=== PATIENT | male | born 1995 | race African-American/Black ===

== ENCOUNTER 2017-03-08 18:15 | Inpatient (IN) | payer SELFPAY ==
[~2017-03-08] VITALS: Ht 170.2 cm; Wt 75.9 kg
[2017-03-08] MEDS ORDERED: ACETAMINOPHEN 325 MG TABLET. PO PRN (22:15)
[2017-03-08] MEDS: fentaNYL PF VIAL 100 MCG/2 ML VIAL IV PRN (22:24)
[2017-03-08] MEDS: IV NORMAL SALINE 1000ML BAG 1,000 ML IV SCH (22:24)
[2017-03-08] MEDS ORDERED: CLINDAMYCIN 900MG PREMIX 50 ML IV ONE (22:30)
[2017-03-08] MEDS ORDERED: ACETAMINOPHEN 325 MG TABLET. PO ONE (22:30)
[2017-03-08 22:33] VITALS: BP 112/60
--- NOTE | 2017-03-08 22:33 | PDOC1 ---
History and Physical Date of Admission Date of Admission DATE: 03/08/17 TIME: 22:26 Identification/Chief Complaint Chief Complaint buttock pain Problems: Source Source: Chart review, Patient History of Present Illness History of Present Illness transferred from [facility], seen in the ER there for buttock pain, noted 2 small and painful cysts, large in the glutteal fold, about 2cm x3 cm eval here for gen surg to eval for I+D, pain 9/10 pain is severe, better with iv fentanyl Mr. 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, and has been sweating more lately Past Medical History Cardiovascular: No pertinent hx Pulmonary: No pertinent hx GI: No pertinent hx Heme/Onc: No pertinent hx Hepatobiliary: No pertinent hx Psych: No pertinent hx Rheumatologic: No pertinent hx Family History Family History: Other (skin problems, cysts and boils) Social History Smoke: <1 pack per day ALCOHOL: rare Drugs: None Current Medications Current Medications Current Medications Sodium Chloride 1,000 ml @ 150 mls/hr Q6H40M IV Last administered on 22:24; Start 03/08/17 at 22:00 Fentanyl Citrate (Fentanyl 2ml Vial) 50 mcg PRN Q1HR PRN IV SEVERE PAIN Last administered on 03/08/17 22:24; Start 03/08/17 at 22:00 Acetaminophen (Tylenol) 650 mg 1X ONCE PO ; Start 03/08/17 at 22:30; Stop 03/08 at 22:31 Acetaminophen (Tylenol) 650 mg PRN Q6HRS PRN PO MILD PAIN; Start 03/08/17 at 22 :15 Clindamycin Phosphate 50 ml @ 100 mls/hr Q8HRS IV ; Start 03/09/17 at 06:00 Clindamycin Phosphate 50 ml @ 100 mls/hr 1X ONCE IV ; Start 03/08/17 at 22:30 ; Stop 03/08/17 at 22:59 Morphine Sulfate (Morphine Ir) 15 mg Q4HRS PRN PO PAIN; Start 03/08/17 at 22:30 ; Status UNV Ketorolac Tromethamine (Toradol) 15 mg PRN Q6HRS PRN IV PAIN; Start 03/08/17 at 22:30; Stop 03/13/17 at 22:29; Status UNV Active Scripts Active Reported No Known Medications Prior To Admisstion (Info) Each 1 Each Allergies Allergies: Coded Allergies: blue dye (Verified Allergy, Intermediate, Hives, 03/08/17) itching sodium hypochlorite solution (Verified Allergy, Intermediate, Hives, ) BLEACH ROS General: No: Chills, Night Sweats, Fatigue, Malaise, Appetite, Other PSYCHOLOGICAL ROS: YES: Sleep disturbances, No: Anxiety, Behavioral Disorder, Concentration difficultie, Decreased libido , Depression, Disorientation, Hallucinations, Hostility, Irritablity, Memory difficulties, Mood Swings, Obsessive thoughts, Other Eyes: No Blurry vision, No Decreased vision, No Double vision, No Dry eyes, No Excessive tearing, No Eye Pain, No Itchy Eyes, No Loss of vision, No Photophobia , No Scotomata, No Uses contacts, No Uses glasses, No Other HEENT: No: Heacaches, Visual Changes, Hearing change, Nasal congestion, Nasal discharge, Oral lesions, Sinus pain, Sore Throat, Epistaxis, Sneezing, Snoring, Tinnitus, Vertigo, Vocal changes, Other Respiratory: No: Cough, Hemoptysis, Orthopnea, Pleuritic Pain, Shortness of breath, SOB with excertion, Sputum Changes, Stridor, Tachypnea, Wheezing, Other Cardiovascular: No Chest Pain, No Palpitations, No Orthopnea, No Paroxysmal Noc. Dyspnea, No Edema, No Lt Headedness, No Other Gastrointestinal: No Nausea, No Vomiting, No Abdominal Pain, No Diarrhea, No Constipation, No Melena, No Hematochezia, No Other Genitourinary: No Dysuria, No Frequency, No Incontinence, No Hematuria, No Retention, No Discharge, No Urgency, No Pain, No Flank Pain, No Other, No , No , No , No , No , No , No Musculoskeletal: Yes Pain In: (buttock skin), No Gait Disturbance, No Joint Pain, No Joint Stiffness, No Joint Swelling, No Muscle Pain, No Muscular Weakness, No Swelling In:, No Other Neurological: No Behavorial Changes, No Bowel/Bladder ControlChng, No Confusion , No Dizziness, No Gait Disturbance, No Headaches, No Impaired Coord/balance, No Memory Loss, No Numbness/Tingling, No Seizures, No Speech Problems, No Tremors, No Visual Changes, No Weakness, No Other Skin: Yes Skin Lesion Changes, Yes Other, Yes Acne, No Dry Skin, No Eczema, No Hair Changes, No Lumps, No Mole Changes, No Mottling, No Nail Changes, No Pruritus, No Rash Physical Exam General: Alert, Oriented X3, Cooperative, mild distress HEENT: EOMI Lungs: Normal air movement Heart: no gallops, no murmurs Abdomen: Soft Rectal Exam: not examined Extremities: No edema, Normal pulses Skin: No significant lesion Neuro: Normal speech, Normal tone, Sensation intact Psych/Mental Status: Mood NL Vitals Vitals Vital Signs Date Time Temp Pulse Resp B/P (MAP) Pulse Ox O2 Delivery O2 Flow Rate FiO2 03/08/17 22:24 20 Room Air Labs Labs NA 141, k+ 3.7, BUN 7, Cr. 0.9, glucose 78 WBC 12.2, Hgb 14, plt 179 VTE Prophylaxis Ordered VTE Prophylaxis Devices: Yes VTE Pharmacological Prophylaxi: No Assessment/Plan Assessment/Plan skin lesions on buttock pilonidal cyst transferred here for surg eval, pain control, NPO after MN leukocytosis, vitals signs pending at this time tobaccoism admit DORIAN HERRON MD March 08, 2017 22:33
[2017-03-08] MEDS: ZOLPIDEM 5 MG TABLET. PO PRN (23:42)
[2017-03-08] MEDS: KETOROLAC 15 MG/ML VIAL. IV PRN (23:42)
[2017-03-09] MEDS: MORPHINE IR 15 MG TABLET PO PRN ×4 (02:30→20:07)
[2017-03-09 03:00] VITALS: BP 108/63
[2017-03-09] MEDS: fentaNYL PF VIAL 100 MCG/2 ML VIAL IV PRN ×7 (04:01→14:45)
[2017-03-09 04:34] LABS: BASO % 0 % (0-3); EOS % 1 % (0-3); HEMATOCRIT 38.9 % (39.0-53.0); HEMOGLOBIN 12.9 g/dL (13.0-17.5); LYMPH # 1.8 x10^3/uL (1.0-4.8); LYMPH % 17 % (24-48); MEAN CORPUSCULAR HEMOGLOBIN 32 pg (25-35); MEAN CORPUSCULAR HGB CONC 33 g/dL (31-37); MEAN CORPUSCULAR VOLUME 96 fL (79-100); MONO % 12 % (0-9); NEUT % 70 % (31-73); PLATELET COUNT 167 x10^3/uL (140-400); RED BLOOD COUNT 4.08 x10^6/uL (4.30-5.70); RED CELL DISTRIBUTION WIDTH 13.4 % (11.5-14.5); WHITE BLOOD COUNT 10.5 x10^3/uL (4.0-11.0)
[2017-03-09 05:05] LABS: ALBUMIN 3.3 g/dL (3.4-5.0); ALBUMIN/GLOBULIN RATIO 0.9 (1.0-1.7); CALCIUM 8.9 mg/dL (8.5-10.1); POTASSIUM 4.5 mmol/L (3.5-5.1); TOTAL BILIRUBIN 0.7 mg/dL (0.2-1.0)
[2017-03-09] MEDS: CLINDAMYCIN 900MG PREMIX 50 ML IV SCH ×3 (06:17→22:07)
[2017-03-09] MEDS: IV NORMAL SALINE 1000ML BAG 1,000 ML IV SCH ×4 (06:18→23:14)
[2017-03-09 07:00] VITALS: BP 130/65
[2017-03-09] MEDS: KETOROLAC 15 MG/ML VIAL. IV PRN ×2 (07:27→23:15)
[2017-03-09] MEDS ORDERED: IV RINGERS,LACTATED 1000ML 1,000 ML IV SCH (07:28)
[2017-03-09] MEDS ORDERED: PROCHLORPERAZINE 10 MG/2 ML VIAL. IV PRN (07:30)
[2017-03-09] MEDS ORDERED: MORPHINE SULFATE 2 MG/ML DISP.SYRIN. IV PRN (07:30)
[2017-03-09] MEDS ORDERED: ONDANSETRON PF 4 MG/2 ML VIAL. IV PRN (07:30)
[2017-03-09] MEDS ORDERED: fentaNYL PF VIAL 100 MCG/2 ML VIAL IV PRN (07:30)
[2017-03-09] MEDS ORDERED: LIDOCAINE 1% 1 ML SYRINGE. ID PRN (07:30)
[2017-03-09] MEDS ORDERED: HYDROmorphone 2 MG/ML VIAL IV PRN (07:30)
--- NOTE | 2017-03-09 08:44 | PDOC2 ---
MARCUS MAYORGA REHAB NURSE 03/09/17 8:44am: CONSULT Date of Consult Date of Consult DATE: 03/09/17 TIME: 08:34 Reason for Consult Reason for Consult: rectal abscess Referring Physician Referring Physician: AVA CAPONE Identification/Chief Complaint Chief Complaint rectal pain Source Source: Chart review, Patient History of Present Illness Reason for Visit: 1 week history of buttock pain and swelling. He has had abscesses in this area before, has typically required drainage, abx. + chills, no fevers Worried to have stool due to pain Past Medical History Cardiovascular: No pertinent hx Pulmonary: No pertinent hx GI: No pertinent hx Heme/Onc: No pertinent hx Hepatobiliary: No pertinent hx Psych: No pertinent hx Rheumatologic: No pertinent hx Past Surgical History Past Surgical History: Appendectomy Family History Family History: Diabetes, Other (skin problems, cysts and boils) Social History <1 pack per day ALCOHOL: rare Drugs: None Lives: Alone Current Medications Current Medications Current Medications Sodium Chloride 1,000 ml @ 150 mls/hr Q6H40M IV Last administered on 06:18; Start 03/08/17 at 22:00 Fentanyl Citrate (Fentanyl 2ml Vial) 50 mcg PRN Q1HR PRN IV SEVERE PAIN Last administered on 03/09/17 06:14; Start 03/08/17 at 22:00 Acetaminophen (Tylenol) 650 mg 1X ONCE PO Last administered on 03/08/17 22:47 ; Start 03/08/17 at 22:30; Stop 03/08/17 at 22:31; Status DC Acetaminophen (Tylenol) 650 mg PRN Q6HRS PRN PO MILD PAIN; Start 03/08/17 at 22 :15 Clindamycin Phosphate 50 ml @ 100 mls/hr Q8HRS IV Last administered on 06:17; Start 03/09/17 at 06:00 Clindamycin Phosphate 50 ml @ 100 mls/hr 1X ONCE IV Last administered on 03/08 22:49; Start 03/08/17 at 22:30; Stop 03/08/17 at 22:59; Status DC Morphine Sulfate (Morphine Ir) 15 mg PRN Q4HRS PRN PO SEVERE PAIN Last administered on 03/09/17 08:20; Start 03/08/17 at 22:30 Ketorolac Tromethamine (Toradol) 15 mg PRN Q6HRS PRN IV MODERATE PAIN Last administered on 03/09/17 07:27; Start 03/08/17 at 22:30; Stop 03/13/17 at 22:29 Zolpidem Tartrate (Ambien) 5 mg PRN QHS PRN PO INSOMNIA Last administered on 23:42; Start 03/08/17 at 22:45 Ondansetron HCl (Zofran) 4 mg PRN Q6HRS PRN IV NAUSEA/VOMITING; Start 03/09/17 at 07:30; Stop 03/10/17 at 07:29 Fentanyl Citrate (Fentanyl 2ml Vial) 25 mcg PRN Q5MIN PRN IV MILD PAIN; Start 03/09/17 at 07:30; Stop 03/10/17 at 07:29 Fentanyl Citrate (Fentanyl 2ml Vial) 50 mcg PRN Q5MIN PRN IV MODERATE PAIN; Start 03/09/17 at 07:30; Stop 03/10/17 at 07:29 Morphine Sulfate 1 mg PRN Q10MIN PRN IV SEVERE PAIN; Start 03/09/17 at 07:30; Stop 03/10/17 at 07:29 Ringer's Solution 1,000 ml @ 0 mls/hr Q0M IV ; Start 03/09/17 at 07:28; Stop at 19:27 Lidocaine HCl 2 ml PRN 1X PRN ID PRIOR TO IV START; Start 03/09/17 at 07:30; Stop 03/10/17 at 07:29 Hydromorphone HCl (Dilaudid) 0.5 mg PRN Q10MIN PRN IV SEV PAIN, Second choice; Start 03/09/17 at 07:30; Stop 03/10/17 at 07:29 Prochlorperazine Edisylate (Compazine) 5 mg PACU PRN PRN IV NAUSEA, MRX1; Start 03/09/17 at 07:30; Stop 03/10/17 at 07:29 Active Scripts Active Reported No Known Medications Prior To Admisstion (Info) Each 1 Each [facility] Allergies Allergies: Coded Allergies: blue dye (Verified Allergy, Intermediate, Hives, 03/08/17) itching sodium hypochlorite solution (Verified Allergy, Intermediate, Hives, ) BLEACH ROS General: YES: Chills, No: Appetite (loss), Other (fevers) PSYCHOLOGICAL ROS: No: Anxiety, Depression Eyes: No Blurry vision, No Double vision HEENT: No: Heacaches, Sore Throat Hematological and Lymphatic: No: Bleeding Problems, Blood Clots Respiratory: No: Cough, Shortness of breath Cardiovascular: No Chest Pain, No Palpitations Gastrointestinal: No Nausea, No Abdominal Pain Genitourinary: No Dysuria, No Hematuria Musculoskeletal: No Joint Pain, No Muscle Pain Neurological: No Impaired Coord/balance, No Numbness/Tingling Skin: Yes Other (see hpi) Physical Exam General: Alert, Oriented X3, Cooperative, No acute distress HEENT: PERRLA, Mucous membr. moist/pink Lungs: Clear to auscultation, Normal air movement Heart: Regular rate, Normal S1, Normal S2, No murmurs Abdomen: Soft, No tenderness Extremities: No clubbing, No cyanosis Skin: Other (rectal area with swelling, erythema, induration, tenderness, tracks across bilateral gluteals ) Neuro: Normal speech, Sensation intact Psych/Mental Status: Mental status NL, Mood NL MUSCULOSKELETAL: No deformity, No swelling Vitals VITALS Vital Signs Date Time Temp Pulse Resp B/P (MAP) Pulse Ox O2 Delivery O2 Flow Rate FiO2 03/09/17 08:20 98 03/09/17 07:00 98.5 83 20 130/65 (86) Room Air 98.5 Labs Labs Laboratory Tests Test 03/09/17 03:40 White Blood Count 10.5 x10^3/uL (4.0-11.0) Red Blood Count 4.08 x10^6/uL (4.30-5.70) Hemoglobin 12.9 g/dL (13.0-17.5) Hematocrit 38.9 % (39.0-53.0) Mean Corpuscular Volume 96 fL (79-100) Mean Corpuscular Hemoglobin 32 pg (25-35) Mean Corpuscular Hemoglobin Concent 33 g/dL (31-37) Red Cell Distribution Width 13.4 % (11.5-14.5) Platelet Count 167 x10^3/uL (140-400) Neutrophils (%) (Auto) 70 % (31-73) Lymphocytes (%) (Auto) 17 % (24-48) Monocytes (%) (Auto) 12 % (0-9) Eosinophils (%) (Auto) 1 % (0-3) Basophils (%) (Auto) 0 % (0-3) Neutrophils # (Auto) 7.3 x10^3uL (1.8-7.7) Lymphocytes # (Auto) 1.8 x10^3/uL (1.0-4.8) Monocytes # (Auto) 1.3 x10^3/uL (0.0-1.1) Eosinophils # (Auto) 0.0 x10^3/uL (0.0-0.7) Basophils # (Auto) 0.0 x10^3/uL (0.0-0.2) Sodium Level 145 mmol/L (136-145) Potassium Level 4.5 mmol/L (3.5-5.1) Chloride Level 107 mmol/L (98-107) Carbon Dioxide Level 31 mmol/L (21-32) Anion Gap 7 (6-14) Blood Urea Nitrogen 7 mg/dL (8-26) Creatinine 1.0 mg/dL (0.7-1.3) Estimated GFR (Cockcroft-Gault) 112.0 BUN/Creatinine Ratio 7 (6-20) Glucose Level 99 mg/dL (70-99) Calcium Level 8.9 mg/dL (8.5-10.1) Total Bilirubin 0.7 mg/dL (0.2-1.0) Aspartate Amino Transf (AST/SGOT) 14 U/L (15-37) Alanine Aminotransferase (ALT/SGPT) 16 U/L (16-63) Alkaline Phosphatase 65 U/L (46-116) Total Protein 7.0 g/dL (6.4-8.2) Albumin 3.3 g/dL (3.4-5.0) Albumin/Globulin Ratio 0.9 (1.0-1.7) Laboratory Tests Test 03/09/17 03:40 White Blood Count 10.5 x10^3/uL (4.0-11.0) Red Blood Count 4.08 x10^6/uL (4.30-5.70) Hemoglobin 12.9 g/dL (13.0-17.5) Hematocrit 38.9 % (39.0-53.0) Mean Corpuscular Volume 96 fL (79-100) Mean Corpuscular Hemoglobin 32 pg (25-35) Mean Corpuscular Hemoglobin Concent 33 g/dL (31-37) Red Cell Distribution Width 13.4 % (11.5-14.5) Platelet Count 167 x10^3/uL (140-400) Neutrophils (%) (Auto) 70 % (31-73) Lymphocytes (%) (Auto) 17 % (24-48) Monocytes (%) (Auto) 12 % (0-9) Eosinophils (%) (Auto) 1 % (0-3) Basophils (%) (Auto) 0 % (0-3) Neutrophils # (Auto) 7.3 x10^3uL (1.8-7.7) Lymphocytes # (Auto) 1.8 x10^3/uL (1.0-4.8) Monocytes # (Auto) 1.3 x10^3/uL (0.0-1.1) Eosinophils # (Auto) 0.0 x10^3/uL (0.0-0.7) Basophils # (Auto) 0.0 x10^3/uL (0.0-0.2) Sodium Level 145 mmol/L (136-145) Potassium Level 4.5 mmol/L (3.5-5.1) Chloride Level 107 mmol/L (98-107) Carbon Dioxide Level 31 mmol/L (21-32) Anion Gap 7 (6-14) Blood Urea Nitrogen 7 mg/dL (8-26) Creatinine 1.0 mg/dL (0.7-1.3) Estimated GFR (Cockcroft-Gault) 112.0 BUN/Creatinine Ratio 7 (6-20) Glucose Level 99 mg/dL (70-99) Calcium Level 8.9 mg/dL (8.5-10.1) Total Bilirubin 0.7 mg/dL (0.2-1.0) Aspartate Amino Transf (AST/SGOT) 14 U/L (15-37) Alanine Aminotransferase (ALT/SGPT) 16 U/L (16-63) Alkaline Phosphatase 65 U/L (46-116) Total Protein 7.0 g/dL (6.4-8.2) Albumin 3.3 g/dL (3.4-5.0) Albumin/Globulin Ratio 0.9 (1.0-1.7) Assessment/Plan Assessment/Plan rectal abscess, piloidal cyst/abscess tobaccoism plan I&D today tobacco cessation KEIRA LÓPEZ MD 03/09/17 1:09pm: CONSULT Allergies Allergies: Coded Allergies: blue dye (Verified Allergy, Intermediate, Hives, 03/08/17) itching sodium hypochlorite solution (Verified Allergy, Intermediate, Hives, ) BLEACH Assessment/Plan Assessment/Plan Patient seen and examined by me. Patient has had swelling and increasing buttock pain for 3 days. He had a similar episode several years ago and had to have drainage. Denies fever or chills. Erythema of the buttocks mstly right upper to left side, very tender to touch, no drainage. Agree with Esteban's assessment and plan, for I&D today. MARCUS MAYORGA APRN March 09, 2017 8:44 am KEIRA LÓPEZ MD March 09, 2017 1:09 pm
[2017-03-09] MEDS: MORPHINE SULFATE 4 MG/ML DISP.SYRIN. IV PRN ×2 (11:08→18:10)
[2017-03-09 11:38] VITALS: BP 123/78
[2017-03-09] MEDS ORDERED: BUPIVACAINE-EPI 0.25%-1:200000 MPF 30 ML VIAL. ONE (12:33)
[2017-03-09] MEDS ORDERED: fentaNYL PF VIAL 100 MCG/2 ML VIAL ONE (13:40)
[2017-03-09] MEDS ORDERED: ROCURONIUM 50 MG/5 ML VIAL. ONE (13:41)
--- NOTE | 2017-03-09 13:44 | PDOC ---
PROGRESS NOTES Chief Complaint Chief Complaint skin lesions on buttock pilonidal cyst leukocytosis, tachycardia, sepsis tobaccoism History of Present Illness History of Present Illness cont IV abd IV fluid NS 150 IV and PO X1 pain meds today to OR at 1500 Vitals Vitals Vital Signs Date Time Temp Pulse Resp B/P (MAP) Pulse Ox O2 Delivery O2 Flow Rate FiO2 03/09/17 13:30 15 97 Room Air 03/09/17 12:53 98.6 94 119/61 98.6 Physical Exam General: Alert, Oriented X3, Cooperative, mild distress Heart: Normal S1, Normal S2, No murmurs Lungs: Clear Abdomen: Soft, No tenderness Extremities: No clubbing, No cyanosis Skin: Other (rectal area with swelling, erythema, induration, tenderness, tracks across bilateral gluteals ) Labs LABS Laboratory Tests Test 03/09/17 03:40 White Blood Count 10.5 x10^3/uL (4.0-11.0) Red Blood Count 4.08 x10^6/uL (4.30-5.70) Hemoglobin 12.9 g/dL (13.0-17.5) Hematocrit 38.9 % (39.0-53.0) Mean Corpuscular Volume 96 fL (79-100) Mean Corpuscular Hemoglobin 32 pg (25-35) Mean Corpuscular Hemoglobin Concent 33 g/dL (31-37) Red Cell Distribution Width 13.4 % (11.5-14.5) Platelet Count 167 x10^3/uL (140-400) Neutrophils (%) (Auto) 70 % (31-73) Lymphocytes (%) (Auto) 17 % (24-48) Monocytes (%) (Auto) 12 % (0-9) Eosinophils (%) (Auto) 1 % (0-3) Basophils (%) (Auto) 0 % (0-3) Neutrophils # (Auto) 7.3 x10^3uL (1.8-7.7) Lymphocytes # (Auto) 1.8 x10^3/uL (1.0-4.8) Monocytes # (Auto) 1.3 x10^3/uL (0.0-1.1) Eosinophils # (Auto) 0.0 x10^3/uL (0.0-0.7) Basophils # (Auto) 0.0 x10^3/uL (0.0-0.2) Sodium Level 145 mmol/L (136-145) Potassium Level 4.5 mmol/L (3.5-5.1) Chloride Level 107 mmol/L (98-107) Carbon Dioxide Level 31 mmol/L (21-32) Anion Gap 7 (6-14) Blood Urea Nitrogen 7 mg/dL (8-26) Creatinine 1.0 mg/dL (0.7-1.3) Estimated GFR (Cockcroft-Gault) 112.0 BUN/Creatinine Ratio 7 (6-20) Glucose Level 99 mg/dL (70-99) Calcium Level 8.9 mg/dL (8.5-10.1) Total Bilirubin 0.7 mg/dL (0.2-1.0) Aspartate Amino Transf (AST/SGOT) 14 U/L (15-37) Alanine Aminotransferase (ALT/SGPT) 16 U/L (16-63) Alkaline Phosphatase 65 U/L (46-116) Total Protein 7.0 g/dL (6.4-8.2) Albumin 3.3 g/dL (3.4-5.0) Albumin/Globulin Ratio 0.9 (1.0-1.7) Assessment and Plan Assessmemt and Plan to OR today cont the IV abx pain control Problems: Comment Review of Relevant I have reviewed the following items rekha (where applicable) has been applied. Labs Laboratory Tests Test 03/09/17 03:40 White Blood Count 10.5 x10^3/uL (4.0-11.0) Red Blood Count 4.08 x10^6/uL (4.30-5.70) Hemoglobin 12.9 g/dL (13.0-17.5) Hematocrit 38.9 % (39.0-53.0) Mean Corpuscular Volume 96 fL (79-100) Mean Corpuscular Hemoglobin 32 pg (25-35) Mean Corpuscular Hemoglobin Concent 33 g/dL (31-37) Red Cell Distribution Width 13.4 % (11.5-14.5) Platelet Count 167 x10^3/uL (140-400) Neutrophils (%) (Auto) 70 % (31-73) Lymphocytes (%) (Auto) 17 % (24-48) Monocytes (%) (Auto) 12 % (0-9) Eosinophils (%) (Auto) 1 % (0-3) Basophils (%) (Auto) 0 % (0-3) Neutrophils # (Auto) 7.3 x10^3uL (1.8-7.7) Lymphocytes # (Auto) 1.8 x10^3/uL (1.0-4.8) Monocytes # (Auto) 1.3 x10^3/uL (0.0-1.1) Eosinophils # (Auto) 0.0 x10^3/uL (0.0-0.7) Basophils # (Auto) 0.0 x10^3/uL (0.0-0.2) Sodium Level 145 mmol/L (136-145) Potassium Level 4.5 mmol/L (3.5-5.1) Chloride Level 107 mmol/L (98-107) Carbon Dioxide Level 31 mmol/L (21-32) Anion Gap 7 (6-14) Blood Urea Nitrogen 7 mg/dL (8-26) Creatinine 1.0 mg/dL (0.7-1.3) Estimated GFR (Cockcroft-Gault) 112.0 BUN/Creatinine Ratio 7 (6-20) Glucose Level 99 mg/dL (70-99) Calcium Level 8.9 mg/dL (8.5-10.1) Total Bilirubin 0.7 mg/dL (0.2-1.0) Aspartate Amino Transf (AST/SGOT) 14 U/L (15-37) Alanine Aminotransferase (ALT/SGPT) 16 U/L (16-63) Alkaline Phosphatase 65 U/L (46-116) Total Protein 7.0 g/dL (6.4-8.2) Albumin 3.3 g/dL (3.4-5.0) Albumin/Globulin Ratio 0.9 (1.0-1.7) Laboratory Tests Test 03/09/17 03:40 White Blood Count 10.5 x10^3/uL (4.0-11.0) Red Blood Count 4.08 x10^6/uL (4.30-5.70) Hemoglobin 12.9 g/dL (13.0-17.5) Hematocrit 38.9 % (39.0-53.0) Mean Corpuscular Volume 96 fL (79-100) Mean Corpuscular Hemoglobin 32 pg (25-35) Mean Corpuscular Hemoglobin Concent 33 g/dL (31-37) Red Cell Distribution Width 13.4 % (11.5-14.5) Platelet Count 167 x10^3/uL (140-400) Neutrophils (%) (Auto) 70 % (31-73) Lymphocytes (%) (Auto) 17 % (24-48) Monocytes (%) (Auto) 12 % (0-9) Eosinophils (%) (Auto) 1 % (0-3) Basophils (%) (Auto) 0 % (0-3) Neutrophils # (Auto) 7.3 x10^3uL (1.8-7.7) Lymphocytes # (Auto) 1.8 x10^3/uL (1.0-4.8) Monocytes # (Auto) 1.3 x10^3/uL (0.0-1.1) Eosinophils # (Auto) 0.0 x10^3/uL (0.0-0.7) Basophils # (Auto) 0.0 x10^3/uL (0.0-0.2) Sodium Level 145 mmol/L (136-145) Potassium Level 4.5 mmol/L (3.5-5.1) Chloride Level 107 mmol/L (98-107) Carbon Dioxide Level 31 mmol/L (21-32) Anion Gap 7 (6-14) Blood Urea Nitrogen 7 mg/dL (8-26) Creatinine 1.0 mg/dL (0.7-1.3) Estimated GFR (Cockcroft-Gault) 112.0 BUN/Creatinine Ratio 7 (6-20) Glucose Level 99 mg/dL (70-99) Calcium Level 8.9 mg/dL (8.5-10.1) Total Bilirubin 0.7 mg/dL (0.2-1.0) Aspartate Amino Transf (AST/SGOT) 14 U/L (15-37) Alanine Aminotransferase (ALT/SGPT) 16 U/L (16-63) Alkaline Phosphatase 65 U/L (46-116) Total Protein 7.0 g/dL (6.4-8.2) Albumin 3.3 g/dL (3.4-5.0) Albumin/Globulin Ratio 0.9 (1.0-1.7) Medications Current Medications Sodium Chloride 1,000 ml @ 150 mls/hr Q6H40M IV Last administered on 06:18; Start 03/08/17 at 22:00 Fentanyl Citrate (Fentanyl 2ml Vial) 50 mcg PRN Q1HR PRN IV SEVERE PAIN Last administered on 03/09/17 12:35; Start 03/08/17 at 22:00 Acetaminophen (Tylenol) 650 mg 1X ONCE PO Last administered on 03/08/17 22:47 ; Start 03/08/17 at 22:30; Stop 03/08/17 at 22:31; Status DC Acetaminophen (Tylenol) 650 mg PRN Q6HRS PRN PO MILD PAIN; Start 03/08/17 at 22 :15 Clindamycin Phosphate 50 ml @ 100 mls/hr Q8HRS IV Last administered on 06:17; Start 03/09/17 at 06:00 Clindamycin Phosphate 50 ml @ 100 mls/hr 1X ONCE IV Last administered on 03/08 22:49; Start 03/08/17 at 22:30; Stop 03/08/17 at 22:59; Status DC Morphine Sulfate (Morphine Ir) 15 mg PRN Q4HRS PRN PO SEVERE PAIN Last administered on 03/09/17 08:20; Start 03/08/17 at 22:30 Ketorolac Tromethamine (Toradol) 15 mg PRN Q6HRS PRN IV MODERATE PAIN Last administered on 03/09/17 07:27; Start 03/08/17 at 22:30; Stop 03/13/17 at 22:29 Zolpidem Tartrate (Ambien) 5 mg PRN QHS PRN PO INSOMNIA Last administered on 23:42; Start 03/08/17 at 22:45 Ondansetron HCl (Zofran) 4 mg PRN Q6HRS PRN IV NAUSEA/VOMITING; Start 03/09/17 at 07:30; Stop 03/10/17 at 07:29 Fentanyl Citrate (Fentanyl 2ml Vial) 25 mcg PRN Q5MIN PRN IV MILD PAIN; Start 03/09/17 at 07:30; Stop 03/10/17 at 07:29 Fentanyl Citrate (Fentanyl 2ml Vial) 50 mcg PRN Q5MIN PRN IV MODERATE PAIN; Start 03/09/17 at 07:30; Stop 03/10/17 at 07:29 Morphine Sulfate 1 mg PRN Q10MIN PRN IV SEVERE PAIN; Start 03/09/17 at 07:30; Stop 03/10/17 at 07:29 Ringer's Solution 1,000 ml @ 0 mls/hr Q0M IV Last administered on 03/09/17 13 :18; Start 03/09/17 at 07:28; Stop 03/09/17 at 19:27 Lidocaine HCl 2 ml PRN 1X PRN ID PRIOR TO IV START; Start 03/09/17 at 07:30; Stop 03/10/17 at 07:29 Hydromorphone HCl (Dilaudid) 0.5 mg PRN Q10MIN PRN IV SEV PAIN, Second choice; Start 03/09/17 at 07:30; Stop 03/10/17 at 07:29 Prochlorperazine Edisylate (Compazine) 5 mg PACU PRN PRN IV NAUSEA, MRX1; Start 03/09/17 at 07:30; Stop 03/10/17 at 07:29 Morphine Sulfate 4 mg PRN Q2HR PRN IV PAIN Last administered on 03/09/17 11:08 ; Start 03/09/17 at 10:45 Bupivacaine HCl/ Epinephrine Bitart (Sensorcaine-Epi 0.25%-1:[id number] Mpf) 30 ml STK-MED ONCE .ROUTE ; Start 03/09/17 at 12:33; Stop 03/09/17 at 12:34; Status DC Fentanyl Citrate (Fentanyl 2ml Vial) 50 mcg PACU PRN PRN IV Pre Op Pain Last administered on 03/09/17 13:30; Start 03/09/17 at 13:30 Fentanyl Citrate (Fentanyl 2ml Vial) 100 mcg STK-MED ONCE .ROUTE ; Start at 13:40; Stop 03/09/17 at 13:41; Status DC Rocuronium [place] (Zemuron) 50 mg STK-MED ONCE .ROUTE ; Start 03/09/17 at 13:41 ; Stop 03/09/17 at 13:42; Status DC Active Scripts Active Reported No Known Medications Prior To Admisstion (Info) Each 1 Each Vitals/I & O Vital Sign - Last 24 Hours 03/08/17 03/08/17 03/08/1730/17 22:24 22:33 22:48 02:30 Temp 98.8 98.8 Pulse 77 Resp 20 20 18 B/P (MAP) 112/60 (77) Pulse Ox 97 97 O2 Delivery Room Air Room Air Room Air Room Air 03/09/17 03/09/17 03/09/17 03/09/17 03:00 03:30 04:01 06:14 Temp 98.6 98.6 Pulse 77 Resp 20 20 20 20 B/P (MAP) 108/63 (78) Pulse Ox 99 97 97 O2 Delivery Room Air Room Air Room Air Room Air 03/09/17 03/09/17 03/09/17 03/09/17 06:44 07:00 08:20 09:47 Temp 98.5 98.5 Pulse 83 Resp 20 20 B/P (MAP) 130/65 (86) Pulse Ox 98 98 98 O2 Delivery Room Air 03/09/17 03/09/17 03/09/17 03/09/17 11:08 11:38 11:45 12:35 Temp 97.9 97.9 Pulse 85 Resp 18 B/P (MAP) 123/78 (93) Pulse Ox 98 99 99 99 O2 Delivery Room Air 03/09/17 03/09/17 03/09/17 03/09/17 12:53 13:16 13:19 13:30 Temp 98.6 98.6 Pulse 94 Resp 15 12 15 B/P (MAP) 119/61 Pulse Ox 97 97 97 97 O2 Delivery Room Air Room Air Room Air Room Air Intake and Output 03/08/17 03/08/17 03/09/17 15:00 23:00 07:00 Intake Total 150 ml 150 ml Balance 150 ml 150 ml DORIAN HERRON MD March 09, 2017 13:44
[2017-03-09] MEDS ORDERED: SEVOFLURANE 31 TO 60 MINUTES. IH ONE (14:08)
[2017-03-09] MEDS ORDERED: LIDOCAINE 2% PF Vial for OR 5 ML VIAL. ONE (14:08)
[2017-03-09] MEDS ORDERED: PROPOFOL 20 ML IV ONE (14:08)
[2017-03-09] MEDS ORDERED: GLYCOPYRROLATE 1 MG/5 ML VIAL. ONE (14:09)
[2017-03-09] MEDS ORDERED: NEOSTIGMINE METHYLSULFATE 5 MG/5 ML SYRINGE. ONE (14:09)
--- NOTE | 2017-03-09 14:14 | PDOC ---
BRIEF OPERATIVE NOTE Date: March 09, 2017 Pre-Op Diagnosis Infected pilonidal cyst with abscess Post-Op Diagnosis Same Procedure Performed I&D Surgeon Wilmer Anesthesia Type: General Blood Loss 20ml Specimens Obtained cultures Findings as above Complications None KEIRA LÓPEZ MD March 09, 2017 2:14 pm
[2017-03-09] MEDS ORDERED: oxyCODONE/APAP 5/325 1 TAB TABLET PO PRN (14:15)
[2017-03-09] MEDS ORDERED: diphenhydrAMINE 50 MG/ML VIAL ONE (14:50)
[2017-03-09] MEDS: diphenhydrAMINE 50 MG/ML VIAL IVP PRN ×2 (14:58→15:24)
[2017-03-09 15:57] VITALS: BP 127/70
[2017-03-09 19:00] VITALS: BP 106/67
--- NOTE | 2017-03-09 19:58 | OP ---
DATE OF SURGERY: 03/09/2017 PREOPERATIVE DIAGNOSIS: Infected sebaceous cyst with abscess. POSTOPERATIVE DIAGNOSIS: Infected sebaceous cyst with abscess. PROCEDURE: Incision and drainage. SURGEON: Andres López MD INDICATIONS: The patient is a 21-year-old male who has had a 3-day history of increasing buttock pain and swelling. Procedure of incision and drainage of the infected pilonidal cyst was explained to the patient in detail. Risks and benefits were also discussed including bleeding and infection. Alternatives of this procedure were also discussed with the patient who seemed to understand and gave verbal and written consent to have the procedure performed. DESCRIPTION OF PROCEDURE: The patient was taken to the Operating Room and was placed in the supine position. General anesthesia was initiated. Once the patient was asleep and intubated, he was then repositioned in the prone jackknife position. His buttocks was prepped and draped in sterile fashion using ChloraPrep. An area around this abscess was injected with 0.25% Marcaine with epinephrine. Incision was made with 10-blade scalpel through the center portion of the abscess. Copious amounts of purulent material were expressed. Cultures were taken. The wound was then irrigated with copious amounts of normal saline and suctioned dry. Loculations were broken up with the surgeon's finger and suction tip. The wound was then packed with 1/2 inch iodoform Nu Gauze, dressed with 4x4s, and ABD with mesh panties. The patient was repositioned in supine position, awakened, and extubated in the Operating Room and was taken to Recovery in stable condition. All sponge and instrument counts were listed as correct. Estimated blood loss was 20 mL. ANDRES LÓPEZ MD DR: NITA/gregoria JOB#: [id number] / [id number]
[2017-03-09 23:00] VITALS: BP 118/66
[2017-03-09] MEDS: ZOLPIDEM 5 MG TABLET. PO PRN (23:15)
--- NOTE | 2017-03-09 23:40 | ACF ---
Admission Forms Criteria SKIN AND WOUND CARE Clinical Indications for Inpatient Care (Place 'X' for any and all applicable criteria): Ongoing inpatient care may be indicated for pressure, venous, arterial, or neuropathic ulcers, with ANY ONE of the following (2)(3)(8)(9)(21)(25): [X ]I. Need for ANY ONE of the following(26) [ ]a) Pressure ulcer closure procedures [ ]b) Skin grafting [ ]c) Wound debridement [ ]d) Dressing change under general anesthesia [ ]e) Arterial revascularization procedures(19) (Also use Aortofemoral or Aortoiliac Bypass or Femoral Popliteal Bypass Criteria as appropriate) [ ]f) Amputation (Also use Foot: Transmetatarsal Amputation or Knee: Amputation Above or Below Knee Criteria as appropriate) [ ]g) Diverting colostomy [X ]h) Other significant surgical treatment [ ]II. Infection requiring inpatient care as indicated by ALL of the following( 27) [ ]a) ANY ONE of the following signs of infection: [ ]i) Poorly approximated incision line. [ ]ii) Excessive drainage [ ]iii) Foul odor [ ]iv) Pus [ ]v) Increased redness [ ]vi) Breakdown in tissue after suture removal [ ]vii) Fever [ ]b) ANY ONE of the following findings: [ ]i) Mental status changes [ ]ii) Dehydration [ ]iii) Bacteremia [ ]iv) Perineal infection [ ]v) Hemodynamic instability [ ]vi) High-risk conditions, such as ANY ONE of the following: [ ]1) Poorly controlled diabetes [ ]2) Cirrhosis [ ]3) Neutropenia [ ]4) Asplenia [ ]5) HIV infection [ ]6) Immunosuppression Extended stay beyond goal length of stay for primary condition may be needed until ALL of the following are present(1)(2)(13)(21)(27): [ ]a) Tissue necrosis absent or treatment plan manageable at lower level of care [ ]b) Fistulas, tunneling, or underlying deep tissue infection absent or treated [ ]c) Purulence and tissue breakdown absent or improved [ ]d) Ulcer surgical repair absent or healing without complications [ ]e) Wound infection absent or manageable at lower level of care [ ]f) Comorbidities absent or manageable at lower level of care The original [employer] content created by [employer] has been revised. The portions of the content which have been revised are identified through the use of italic text or in bold, and [facility] has neither reviewed nor approved the modified material. All other unmodified content is copyright [facility]. Please see references footnoted in the original [facility] edition 2016 Admission Criteria Met?: Yes AMANDA CABRAL March 09, 2017 23:40
[2017-03-10] MEDS: IV NORMAL SALINE 1000ML BAG 1,000 ML IV SCH (00:10)
[2017-03-10] MEDS: CLINDAMYCIN 900MG PREMIX 50 ML IV SCH (05:31)
[2017-03-10 07:00] VITALS: BP 135/88
[2017-03-10] MEDS: MORPHINE IR 15 MG TABLET PO PRN (08:47)
--- NOTE | 2017-03-10 09:07 | PDOC ---
MARCUS MAYORGA PRETZEL COOKER 03/10/17 0907: SURGICAL PROGRESS NOTE Subjective some pain to incision, overall feels better Vital Signs Vital Signs Date Time Temp Pulse Resp B/P (MAP) Pulse Ox O2 Delivery O2 Flow Rate FiO2 03/10/17 08:47 97 Room Air 10.0 03/10/17 07:00 97.7 79 20 135/88 (104) 97.7 I&O Intake and Output 03/10/17 07:00 Intake Total 10 ml Output Total 850 ml Balance -840 ml Intake Oral 10 ml Output Urine Total 850 ml # Voids 5 General: Alert, Oriented X3, Cooperative, No acute distress Skin: Other (buttock wound packed, less erythema/induration) Labs Laboratory Tests Test 03/09/17 03:40 White Blood Count 10.5 x10^3/uL (4.0-11.0) Red Blood Count 4.08 x10^6/uL (4.30-5.70) Hemoglobin 12.9 g/dL (13.0-17.5) Hematocrit 38.9 % (39.0-53.0) Mean Corpuscular Volume 96 fL (79-100) Mean Corpuscular Hemoglobin 32 pg (25-35) Mean Corpuscular Hemoglobin Concent 33 g/dL (31-37) Red Cell Distribution Width 13.4 % (11.5-14.5) Platelet Count 167 x10^3/uL (140-400) Neutrophils (%) (Auto) 70 % (31-73) Lymphocytes (%) (Auto) 17 % (24-48) Monocytes (%) (Auto) 12 % (0-9) Eosinophils (%) (Auto) 1 % (0-3) Basophils (%) (Auto) 0 % (0-3) Neutrophils # (Auto) 7.3 x10^3uL (1.8-7.7) Lymphocytes # (Auto) 1.8 x10^3/uL (1.0-4.8) Monocytes # (Auto) 1.3 x10^3/uL (0.0-1.1) Eosinophils # (Auto) 0.0 x10^3/uL (0.0-0.7) Basophils # (Auto) 0.0 x10^3/uL (0.0-0.2) Sodium Level 145 mmol/L (136-145) Potassium Level 4.5 mmol/L (3.5-5.1) Chloride Level 107 mmol/L (98-107) Carbon Dioxide Level 31 mmol/L (21-32) Anion Gap 7 (6-14) Blood Urea Nitrogen 7 mg/dL (8-26) Creatinine 1.0 mg/dL (0.7-1.3) Estimated GFR (Cockcroft-Gault) 112.0 BUN/Creatinine Ratio 7 (6-20) Glucose Level 99 mg/dL (70-99) Calcium Level 8.9 mg/dL (8.5-10.1) Total Bilirubin 0.7 mg/dL (0.2-1.0) Aspartate Amino Transf (AST/SGOT) 14 U/L (15-37) Alanine Aminotransferase (ALT/SGPT) 16 U/L (16-63) Alkaline Phosphatase 65 U/L (46-116) Total Protein 7.0 g/dL (6.4-8.2) Albumin 3.3 g/dL (3.4-5.0) Albumin/Globulin Ratio 0.9 (1.0-1.7) Assessment/Plan s/p I&D continue wound care, wound nurse to see continue abx, cultures pending Problems: KEIRA LÓPEZ MD 03/10/17 1412: SURGICAL PROGRESS NOTE Assessment/Plan Agree with Esteban's assessment and plan. Problems: MARCUS MAYORGA PRETZEL COOKER March 10, 2017 09:07 KEIRA LÓPEZ MD March 10, 2017 14:12
--- NOTE | 2017-03-10 10:05 | PDOC ---
PROGRESS NOTES Chief Complaint Chief Complaint skin lesions on buttock pilonidal cyst likley hidranitis suppurtiva leukocytosis, tachycardia, sepsis tobaccoism History of Present Illness History of Present Illness change to PO abx DC iv fluid cont wound care to buttock DC when able to manage buttock wound Vitals Vitals Vital Signs Date Time Temp Pulse Resp B/P (MAP) Pulse Ox O2 Delivery O2 Flow Rate FiO2 03/10/17 08:47 97 Room Air 10.0 03/10/17 07:00 97.7 79 20 135/88 (104) 97.7 Physical Exam General: Alert, Oriented X3, Cooperative, No acute distress Heart: Normal S1, Normal S2, No murmurs Lungs: Clear Abdomen: Soft, No tenderness Extremities: No clubbing, No cyanosis Skin: Other (buttock wound packed, less erythema/induration) Review of Systems Review of Systems pain better no n/v.d Assessment and Plan Assessmemt and Plan plan DC tomorrow Problems: Comment Review of Relevant I have reviewed the following items rekha (where applicable) has been applied. Labs Laboratory Tests Test 03/09/17 03:40 White Blood Count 10.5 x10^3/uL (4.0-11.0) Red Blood Count 4.08 x10^6/uL (4.30-5.70) Hemoglobin 12.9 g/dL (13.0-17.5) Hematocrit 38.9 % (39.0-53.0) Mean Corpuscular Volume 96 fL (79-100) Mean Corpuscular Hemoglobin 32 pg (25-35) Mean Corpuscular Hemoglobin Concent 33 g/dL (31-37) Red Cell Distribution Width 13.4 % (11.5-14.5) Platelet Count 167 x10^3/uL (140-400) Neutrophils (%) (Auto) 70 % (31-73) Lymphocytes (%) (Auto) 17 % (24-48) Monocytes (%) (Auto) 12 % (0-9) Eosinophils (%) (Auto) 1 % (0-3) Basophils (%) (Auto) 0 % (0-3) Neutrophils # (Auto) 7.3 x10^3uL (1.8-7.7) Lymphocytes # (Auto) 1.8 x10^3/uL (1.0-4.8) Monocytes # (Auto) 1.3 x10^3/uL (0.0-1.1) Eosinophils # (Auto) 0.0 x10^3/uL (0.0-0.7) Basophils # (Auto) 0.0 x10^3/uL (0.0-0.2) Sodium Level 145 mmol/L (136-145) Potassium Level 4.5 mmol/L (3.5-5.1) Chloride Level 107 mmol/L (98-107) Carbon Dioxide Level 31 mmol/L (21-32) Anion Gap 7 (6-14) Blood Urea Nitrogen 7 mg/dL (8-26) Creatinine 1.0 mg/dL (0.7-1.3) Estimated GFR (Cockcroft-Gault) 112.0 BUN/Creatinine Ratio 7 (6-20) Glucose Level 99 mg/dL (70-99) Calcium Level 8.9 mg/dL (8.5-10.1) Total Bilirubin 0.7 mg/dL (0.2-1.0) Aspartate Amino Transf (AST/SGOT) 14 U/L (15-37) Alanine Aminotransferase (ALT/SGPT) 16 U/L (16-63) Alkaline Phosphatase 65 U/L (46-116) Total Protein 7.0 g/dL (6.4-8.2) Albumin 3.3 g/dL (3.4-5.0) Albumin/Globulin Ratio 0.9 (1.0-1.7) Microbiology 03/09/17 Gram Stain - Final, Complete Medications Current Medications Sodium Chloride 1,000 ml @ 150 mls/hr Q6H40M IV Last administered on 00:10; Start 03/08/17 at 22:00 Fentanyl Citrate (Fentanyl 2ml Vial) 50 mcg PRN Q1HR PRN IV SEVERE PAIN Last administered on 03/09/17 12:35; Start 03/08/17 at 22:00 Acetaminophen (Tylenol) 650 mg 1X ONCE PO Last administered on 03/08/17 22:47 ; Start 03/08/17 at 22:30; Stop 03/08/17 at 22:31; Status DC Acetaminophen (Tylenol) 650 mg PRN Q6HRS PRN PO MILD PAIN; Start 03/08/17 at 22 :15 Clindamycin Phosphate 50 ml @ 100 mls/hr Q8HRS IV Last administered on 05:31; Start 03/09/17 at 06:00 Clindamycin Phosphate 50 ml @ 100 mls/hr 1X ONCE IV Last administered on 03/08 22:49; Start 03/08/17 at 22:30; Stop 03/08/17 at 22:59; Status DC Morphine Sulfate (Morphine Ir) 15 mg PRN Q4HRS PRN PO SEVERE PAIN Last administered on 03/10/17 08:47; Start 03/08/17 at 22:30 Ketorolac Tromethamine (Toradol) 15 mg PRN Q6HRS PRN IV MODERATE PAIN Last administered on 03/09/17 23:15; Start 03/08/17 at 22:30; Stop 03/13/17 at 22:29 Zolpidem Tartrate (Ambien) 5 mg PRN QHS PRN PO INSOMNIA Last administered on 23:15; Start 03/08/17 at 22:45 Ondansetron HCl (Zofran) 4 mg PRN Q6HRS PRN IV NAUSEA/VOMITING; Start 03/09/17 at 07:30; Stop 03/10/17 at 07:29; Status DC Fentanyl Citrate (Fentanyl 2ml Vial) 25 mcg PRN Q5MIN PRN IV MILD PAIN; Start 03/09/17 at 07:30; Stop 03/10/17 at 07:29; Status DC Fentanyl Citrate (Fentanyl 2ml Vial) 50 mcg PRN Q5MIN PRN IV MODERATE PAIN Last administered on 03/09/17 14:45; Start 03/09/17 at 07:30; Stop 03/10/17 at 07:29; Status DC Morphine Sulfate 1 mg PRN Q10MIN PRN IV SEVERE PAIN Last administered on 15:43; Start 03/09/17 at 07:30; Stop 03/10/17 at 07:29; Status DC Ringer's Solution 1,000 ml @ 0 mls/hr Q0M IV Last administered on 03/09/17 13 :18; Start 03/09/17 at 07:28; Stop 03/09/17 at 19:27; Status DC Lidocaine HCl 2 ml PRN 1X PRN ID PRIOR TO IV START; Start 03/09/17 at 07:30; Stop 03/10/17 at 07:29; Status DC Hydromorphone HCl (Dilaudid) 0.5 mg PRN Q10MIN PRN IV SEV PAIN, Second choice; Start 03/09/17 at 07:30; Stop 03/10/17 at 07:29; Status DC Prochlorperazine Edisylate (Compazine) 5 mg PACU PRN PRN IV NAUSEA, MRX1; Start 03/09/17 at 07:30; Stop 03/10/17 at 07:29; Status DC Morphine Sulfate 4 mg PRN Q2HR PRN IV PAIN Last administered on 03/09/17 18:10 ; Start 03/09/17 at 10:45 Bupivacaine HCl/ Epinephrine Bitart (Sensorcaine-Epi 0.25%-1:[id number] Mpf) 30 ml STK-MED ONCE .ROUTE Last administered on 03/09/17 14:35; Start 03/09/17 at 12: 33; Stop 03/09/17 at 12:34; Status DC Fentanyl Citrate (Fentanyl 2ml Vial) 50 mcg PACU PRN PRN IV Pre Op Pain Last administered on 03/09/17 13:30; Start 03/09/17 at 13:30 Fentanyl Citrate (Fentanyl 2ml Vial) 100 mcg STK-MED ONCE .ROUTE ; Start at 13:40; Stop 03/09/17 at 13:41; Status DC Rocuronium [place] (Zemuron) 50 mg STK-MED ONCE .ROUTE ; Start 03/09/17 at 13:41 ; Stop 03/09/17 at 13:42; Status DC Propofol 20 ml @ As Directed STK-MED ONCE IV ; Start 03/09/17 at 14:08; Stop at 14:09; Status DC Lidocaine HCl (Lidocaine Pf 2% Vial) 5 ml STK-MED ONCE .ROUTE ; Start 03/09/17 at 14:08; Stop 03/09/17 at 14:09; Status DC Sevoflurane (Ultane) 30 ml STK-MED ONCE IH ; Start 03/09/17 at 14:08; Stop 03/09 at 14:09; Status DC Glycopyrrolate (Robinul) 1 mg STK-MED ONCE .ROUTE ; Start 03/09/17 at 14:09; Stop 03/09/17 at 14:10; Status DC Neostigmine Methylsulfate 5 mg STK-MED ONCE .ROUTE ; Start 03/09/17 at 14:09; Stop 03/09/17 at 14:10; Status DC Oxycodone/ Acetaminophen (Percocet 5/325) 1 tab PRN Q4HRS PRN PO MILD PAIN; Start 03/09/17 at 14:15 Oxycodone/ Acetaminophen (Percocet 5/325) 2 tab PRN Q4HRS PRN PO MODERATE/ SEVERE PAIN; Start 03/09/17 at 14:15 Diphenhydramine HCl (Benadryl) 50 mg STK-MED ONCE .ROUTE ; Start 03/09/17 at 14: 50; Stop 03/09/17 at 14:51; Status DC Diphenhydramine HCl (Benadryl) 12.5 mg 1X PACU PRN IVP ITCHING Last administered on 03/09/17t 15:24; Start 03/09/17 at 15:00 Active Scripts Active Reported No Known Medications Prior To Admisstion (Info) Each 1 Each Vitals/I & O Vital Sign - Last 24 Hours 03/09/17 03/09/17 03/09/17 03/09/17 11:08 11:38 12:35 12:53 Temp 97.9 98.6 97.9 98.6 Pulse 85 94 Resp 18 15 B/P (MAP) 123/78 (93) 119/61 Pulse Ox 98 99 99 97 O2 Delivery Room Air Room Air 03/09/17 03/09/17 03/09/17 03/09/17 13:16 13:19 13:30 14:19 Temp 98.6 98.6 Pulse 97 Resp 12 15 16 B/P (MAP) 139/76 Pulse Ox 97 97 97 97 O2 Delivery Room Air Room Air Room Air Simple Mask O2 Flow Rate 10 03/09/17 03/09/17 03/09/17 03/09/17 14:30 14:34 14:45 14:49 Pulse 96 90 Resp 14 21 4 16 B/P (MAP) 132/67 132/76 Pulse Ox 98 95 94 O2 Delivery Simple Mask Room Air Room Air Room Air O2 Flow Rate 10.0 03/09/17 03/09/17 03/09/17 03/09/17 15:04 15:19 15:34 15:43 Pulse 93 95 88 Resp 16 16 16 17 B/P (MAP) 144/79 135/62 123/58 Pulse Ox 95 95 97 96 O2 Delivery Room Air Room Air Room Air Room Air 03/09/17 03/09/17 03/09/17 03/09/17 15:57 16:23 18:10 18:41 Temp 98.4 98.4 Pulse 82 Resp 16 B/P (MAP) 127/70 (89) Pulse Ox 97 97 97 97 O2 Delivery Room Air Room Air Room Air Room Air O2 Flow Rate 10.0 10.0 10.0 03/09/17 03/09/17 03/09/17 03/09/17 19:00 20:00 20:07 21:07 Temp 99.0 99.0 Pulse 90 Resp 18 B/P (MAP) 106/67 (80) Pulse Ox 98 O2 Delivery Room Air Room Air Room Air Room Air 03/09/17 03/10/17 03/10/17 23:00 07:00 08:47 Temp 98.6 97.7 98.6 97.7 Pulse 85 79 Resp 18 20 B/P (MAP) 118/66 (83) 135/88 (104) Pulse Ox 97 97 97 O2 Delivery Room Air Room Air Room Air O2 Flow Rate 10.0 Intake and Output 03/09/17 03/09/17 03/10/17 15:00 23:00 07:00 Intake Total 10 ml Output Total 850 ml Balance 10 ml -850 ml DORIAN HERRON MD March 10, 2017 10:05
[2017-03-10 11:00] VITALS: BP 138/103
[2017-03-10 15:00] VITALS: BP 126/68
[2017-03-10] MEDS: CLINDAMYCIN HCL 150 MG CAPSULE. PO SCH ×2 (15:20→20:30)
[2017-03-10] MEDS: oxyCODONE/APAP 5/325 1 TAB TABLET PO PRN ×2 (15:48→20:30)
[2017-03-10 19:00] VITALS: BP 112/56
[2017-03-10 23:00] VITALS: BP 117/65
[2017-03-11 03:00] VITALS: BP 104/65
[2017-03-11 07:00] VITALS: BP 112/58
[2017-03-11] MEDS ORDERED: OXYC1TAB7 PO (09:22)
[2017-03-11] MEDS ORDERED: IBUP-1027 PO (09:22)
[2017-03-11] MEDS ORDERED: DOXY100C2 PO (09:22)
[2017-03-11] MEDS: CLINDAMYCIN HCL 150 MG CAPSULE. PO SCH ×2 (09:23→16:01)
--- NOTE | 2017-03-11 09:41 | PDOC ---
SURGICAL PROGRESS NOTE Subjective tolerating diet pain with dressing change yesterday he is going to see if his can come up and learn how to change dressing Vital Signs Vital Signs Date Time Temp Pulse Resp B/P (MAP) Pulse Ox O2 Delivery O2 Flow Rate FiO2 03/11/17 07:00 97.7 78 18 112/58 (76) 97 Room Air 97.7 03/10/17 21:30 10.0 I&O Intake and Output 03/11/17 07:00 Intake Total 1650 ml Balance 1650 ml Intake Oral 600 ml IV Total 1050 ml # Voids 6 General: Alert, Oriented X3, Cooperative, No acute distress Skin: Other (dressing in place) Assessment/Plan s/p I&D wound care, wound care Fu as needed Problems: MARCUS MAYORGA APRN Mar 11, 2017 09:41
[2017-03-11 11:00] VITALS: BP 107/67
[2017-03-11] MEDS: oxyCODONE/APAP 5/325 1 TAB TABLET PO PRN (11:25)
[2017-03-11 15:00] VITALS: BP 118/70
--- NOTE | 2017-03-11 15:19 | PDOC3 ---
Discharge Summary Visit Information Date of Admission: March 08, 2017 Date of Discharge: Mar 11, 2017 Admitting Diagnosis: buttock lesion, cyst Final Diagnosis skin lesions on buttock pilonidal cyst likley hidranitis suppurtiva leukocytosis, tachycardia, sepsis tobaccoism Brief Hospital Course Allergies Allergies Coded Allergies Type Severity Reaction Last Updated Verified blue dye Allergy Intermediate Hives 03/09/17 Yes sodium hypochlorite solution Allergy Intermediate Hives 03/09/17 Yes Vital Signs Vital Signs Date Time Temp Pulse Resp B/P (MAP) Pulse Ox O2 Delivery O2 Flow Rate FiO2 03/11/17 11:25 Room Air 03/11/17 11:00 97.9 76 18 107/67 (80) 97 97.9 03/10/17 21:30 10.0 Brief Hospital Course Mr. Sotelo is a 21 old admit from [facility] for pilonidial cyst. to OR 03/09, cx neg mult boil lesions, and acne, and family history f/u Hidranitis, he has a family member that is a licensing registration examiner, and recs given wound clinic referral to [facility] for QOD f/u, off work 1 week, he is a painter structural steel, works outside discussed with KOBE GOMEZ with PO curly burt recommended, he said he had never used this before. Discharge Information Condition at Discharge: Improved Follow Up: Weeks Disposition/Orders: D/C to Home Scheduled PRN Oxycodone Hcl/Acetaminophen (Oxycodone-Acetaminophen 5-325), 1 TAB PO PRN Q4HRS PRN for MILD PAIN Miscellaneous Medications Info (No Known Medications Prior To Admisstion), 1 EACH , (Reported) Patient Instructions Patient Instructions time > 30 min DORIAN HERRON MD Mar 11, 2017 15:19
[2017-03-11] MEDS: MORPHINE IR 15 MG TABLET PO PRN (16:01)
== END 2017-03-11 16:20 | disposition home or self-care (01) | DRG 854 ==
LOC: 5 NORTH 21:58
PROVIDERS: ADMIT Internal Medicine; ATTEND Internal Medicine
PROC: 0J990ZZ Drainage of Buttock Subcutaneous Tissue and Fascia, Open Approach (ICD-10-PCS; principal; 2017-03-09 13:00)
DX: A41.9 Sepsis, unspecified organism (principal); L05.01 Pilonidal cyst with abscess; K61.1 Rectal abscess; L73.2 Hidradenitis suppurativa; F17.210 Nicotine dependence, cigarettes, uncomplicated; L72.3 Sebaceous cyst; Z83.3 Family history of diabetes mellitus; Z88.8 Allergy status to other drugs, medicaments and biological substances; Z90.49 Acquired absence of other specified parts of digestive tract
CPT/HCPCS: 36415; 80053; 85027; 87071; 87075; 87205; 99406; J1200; J1885; J2270; J2704; J2710; J3010; J3490; J7030; J7120